=== PATIENT | female | born 1995 | race Caucasian/White ===

== ENCOUNTER 2020-08-06 00:48 | Emergency (ER) | payer OTHER ==
[~2020-08-06] VITALS: Ht 182.9 cm; Wt 60.4 kg
[2020-08-06 00:51] VITALS: BP 135/90
--- NOTE | 2020-08-06 01:07 | NUR ---
INITIAL PT CONTACT. PT PRESENTS TO ED "FOR STD CHECK." PT REC'D TEXT FROM [email or web address]/INFO THAT THEY WERE EXPOSED TO CHLAMYDIA & HIV. PT UNSURE IF A HOAX. DENIES ANY S/S. PT DENIES ANY COMPLAINTS AT THIS TIME. CALL LIGHT AND PERSONAL BELONGINGS WITHIN REACH. FRIEND AT BEDSIDE. AWAITING ERP
--- NOTE | 2020-08-06 02:29 | NUR ---
pt given blanket. denies any needs. will ctm.
== END 2020-08-06 02:35 | disposition home or self-care (01) ==
LOC: ED 01:18
DX: A64 Unspecified sexually transmitted disease (principal)
CPT/HCPCS: 36415; 86592; 87491; 87591; 87806; 99283; G0475